=== PATIENT | female | born 1950 | race Caucasian/White ===

== ENCOUNTER 2017-02-16 12:49 | Observation (INO) | payer BC ==
[2017-02-16] MEDS ORDERED: HYDROmorphone 1 MG/ML 1 ML SYRINGE IVP STA ×2 (13:03→18:05)
--- NOTE | 2017-02-16 13:10 | ED ---
Fall HPI - General Chief Complaint: Fall Stated Complaint: Fall Time Seen by Provider: 02/16/17 12:56 Source: patient Mode of arrival: EMS - History of Present Illness Initial Comments: Patient is a 66-year-old female who presents to the ED via EMS for evaluation of left shoulder pain after a fall. Patient states that she was walking out of a grocery store pushing a cart, she states she believes that a case of pop fell out of the cart and caused her to trip, she states that she fell to the ground but did not let go of the cart with her left arm. She immediately felt significant pain in her left arm and was unable to move it. 911 was called. EMS found the patient standing ground with her left arm abducted and externally rotated. They placed her on a backboard for ease of transport and administered 50 of intranasal Brian 100 g of IV fentanyl in route to the hospital. Trent significant doses of narcotics the patient continues to complain of 10 out of 10 pain in her left shoulder. Patient denies any other injuries. - Related Data Home Medications Medication Instructions Recorded Confirmed Acetaminophen/Diphenhydramine 1 tab PO HS 08/07/14 02/16/17 [Tylenol PM 500-25mg] DULoxetine HCL 60 mg PO DAILY 08/07/14 02/16/17 Gabapentin [Neurontin] 300 mg PO HS 08/07/14 02/16/17 Acetaminophen Arthritis Strength 1,300 mg PO BID 01/15/15 02/16/17 Cholecalciferol [Vitamin D3] 1,000 unit PO DAILY 01/15/15 02/16/17 Omeprazole [PriLOSEC] 20 mg PO DAILY 02/16/17 02/16/17 Vitamin B Complex 1 cap PO DAILY 02/16/17 02/16/17 Allergies Allergy/AdvReac Type Severity Reaction Status Date / Time hydrocodone Allergy Itching Verified 02/16/17 13:56 Sulfa (Sulfonamide Allergy Anaphylaxis Verified 02/16/17 13:56 Antibiotics) Review of Systems ROS Statement: Those systems with pertinent positive or pertinent negative responses have been documented in the HPI. ROS Other: All systems not noted in ROS Statement are negative. Past Medical History Past Medical History: Diabetes Mellitus, Eye Disorder, Fibromyalgia, GERD/Reflux , GI Bleed, Pneumonia, Seizure Disorder Additional Past Medical History / Comment(s): BILAT CATARACTS,DIET CONTROLLED DIABETIC, BLEEDING ULCER AGE 24,LAST SEIZURE 1999,[id number], DIVERTICULTIS History of Any Multi-Drug Resistant Organisms: None Reported Past Surgical History: Appendectomy, Bladder Surgery, Section Additional Past Surgical History / Comment(s): bladder suspension, SUNNI FUNDLIPLOCATION, COLONOSCOPY- CYST REMOVED FROM LT CLAVICAL AND LT HAND, back surgery Past Anesthesia/Blood Transfusion Reactions: Motion Sickness Past Psychological History: No Psychological Hx Reported Smoking Status: Never smoker - Past Family History Father Family Medical History: Myocardial Infarction ([place]) Additional Family Medical History / Comment(s): MALARIA WHILE IN SERVICE, MASSIVE [place] AGE 57- Mother Additional Family Medical History / Comment(s): STROKE AGE 38 Sister(s) Family Medical History: Cancer General Exam Limitations: no limitations Course Vital Signs 02/16/17 02/16/17 02/16/17 12:53 14:22 15:06 Temperature 97.9 F Pulse Rate 102 H 84 99 Respiratory 24 20 18 Rate Blood Pressure 168/96 209/97 184/99 O2 Sat by Pulse 100 100 100 Oximetry 02/16/17 02/16/17 02/16/17 16:41 16:56 17:04 Temperature Pulse Rate 96 79 89 Respiratory 17 18 17 Rate Blood Pressure 175/89 151/95 156/84 O2 Sat by Pulse 100 100 100 Oximetry 02/16/17 02/16/17 02/16/17 17:08 17:13 17:20 Temperature Pulse Rate 102 H 110 H 95 Respiratory 17 16 18 Rate Blood Pressure 179/104 191/105 181/123 O2 Sat by Pulse 98 100 100 Oximetry 02/16/17 02/16/17 17:36 18:12 Temperature Pulse Rate 88 102 H Respiratory 18 20 Rate Blood Pressure 158/78 167/90 O2 Sat by Pulse 98 100 Oximetry Medical Decision Making - Medical Decision Making Patient was seen and evaluated, history was obtained from patient, and EMS Physical exam is concerning for significant pain in the left upper extremity, concern for dislocation versus fracture X-ray was ordered Dilaudid was ordered for analgesia Xray reveals fracture/dislocation Ortho was paged for recommendations She care was discussed with Cathie MORALES from the orthopedic team who will review the images with the attending physician and callback with recommendations She called back and recommended that we attempt reduction in the emergency department, I don't believe the patient will tolerate a weight reduction therefore we will plan for conscious sedation Propofol was ordered for conscious sedation, patient was placed on cardiac and respiratory monitors, respiratory therapy at bedside, suctioning and crash cart were available at bedside Patient was sedated with 200 g of propofol, adequate sedation was achieved Reduction was attempted via traction countertraction as well as a modified legg technique, there is significant movement of the bones palpated as well as crepitus Patient's arm was placed in a sling and a repeat x-ray was obtained Patient woke from sedation and quickly became alert and oriented back to her baseline mental status Repeat dose of Dilaudid was ordered Repeat X-ray reveals that the humerus was not successfully reduced, orthopedic surgery was again paged Orthopedic surgery callback, they will again reevaluate the images with the attending physician and make recommendations Orthopedic surgery callback, they've reviewed the repeat imaging and plan to take the patient to the operating room for general anesthetic and reduction Patient family were updated with plan they're agreeable to plan for OR for reduction of fracture dislocation - Lab Data Result diagrams: 02/16/17 14:30 02/16/17 14:30 Lab Results 02/16/17 02/16/17 02/16/17 Range/Units 14:30 14:30 14:30 WBC 10.6 (3.8-10.6) k/uL RBC 4.51 (3.80-5.40) m/uL Hgb 14.3 (11.4-16.0) gm/dL Hct 43.5 (34.0-46.0) % MCV 96.3 (80.0-100.0) fL MCH 31.6 (25.0-35.0) pg MCHC 32.8 (31.0-37.0) g/dL RDW 13.9 (11.5-15.5) % Plt Count 201 (150-450) k/uL Neutrophils % 76 % Lymphocytes % 16 % Monocytes % 6 % Eosinophils % 1 % Basophils % 0 % Neutrophils # 8.0 H (1.3-7.7) k/uL Lymphocytes # 1.7 (1.0-4.8) k/uL Monocytes # 0.6 (0-1.0) k/uL Eosinophils # 0.1 (0-0.7) k/uL Basophils # 0.0 (0-0.2) k/uL PT 10.8 (9.0-12.0) sec INR 1.1 (<1.2) APTT 24.6 (22.0-30.0) sec Sodium 140 (137-145) mmol/L Potassium 4.6 (3.5-5.1) mmol/L Chloride 107 (98-107) mmol/L Carbon Dioxide 24 (22-30) mmol/L Anion Gap 9 mmol/L BUN 13 (7-17) mg/dL Creatinine 0.59 (0.52-1.04) mg/dL Est GFR (MDRD) Af Amer >60 (>60 ml/min/1.73 sqM) Est GFR (MDRD) Non-Af >60 (>60 ml/min/1.73 sqM) Glucose 102 H (74-99) mg/dL Calcium 9.0 (8.4-10.2) mg/dL Disposition Clinical Impression: Left humeral fracture, Dislocation of left shoulder joint Disposition: ADMITTED IP TO THIS [facility] Condition: Good
--- NOTE | 2017-02-16 14:30 | XR ---
EXAMINATION TYPE: XR shoulder complete LT DATE OF EXAM: 02/16/2017 COMPARISON: NONE HISTORY: 56-year-old female pain, fall, evaluate for dislocation TECHNIQUE: 2 views FINDINGS: Mild degenerative change at the AC joint. There appears to be an anterior subcoracoid humeral joint d islocation with the displaced fracture of the greater tuberosity which is mildly comminuted. Largest fracture fragment measures 1.5 cm. IMPRESSION: Fracture dislocation of the left shoulder. There is subcoracoid glenohumeral joint dislocation with a displaced, mildly comminuted 1.5 cm greater tuberosity fracture fragment. Given the patient's arm po sition, this may represent an inferior dislocation (luxatio erecta).
[2017-02-16 14:42] LABS: Basophils % (A) 0 %; CH 31.9; CHCM 33.3; Eosinophils # (A) 0.1 k/uL (0-0.7); Eosinophils % (A) 1 %; HCT 43.5 % (34.0-46.0); HDW 2.15; HGB 14.3 gm/dL (11.4-16.0); Luc # (Auto) 0.17; Luc % (Auto) 2; Lymphocytes # (A) 1.7 k/uL (1.0-4.8); Lymphocytes % (A) 16 %; MCH 31.6 pg (25.0-35.0); MCHC 32.8 g/dL (31.0-37.0); MCV 96.3 fL (80.0-100.0); Mean Platelet Volume 7.3; Monocytes # (A) 0.6 k/uL (0-1.0); Monocytes % (A) 6 %; Neutrophils % (A) 76 %; RBC 4.51 m/uL (3.80-5.40); RDW 13.9 % (11.5-15.5); WBC 10.6 k/uL (3.8-10.6); WBC (Perox) 10.41
[2017-02-16 14:57] LABS: Anion Gap 9 mmol/L; Blood Urea Nitrogen 13 mg/dL (7-17); Carbon Dioxide 24 mmol/L (22-30); Chloride 107 mmol/L (98-107); Glucose 102 mg/dL (74-99); Non-African American GFR(MDRD) >60 (>60 ml/min/1.73 sqM); Potassium 4.6 mmol/L (3.5-5.1); Sodium 140 mmol/L (137-145)
[2017-02-16 15:22] LABS: INR 1.1 (<1.2); Partial Thromboplastin Time 24.6 sec (22.0-30.0); Prothrombin Time 10.8 sec (9.0-12.0)
[2017-02-16] MEDS: PROPOFOL 10 MG/ML 20 ML VIAL IV STA ×4 (16:55→17:14)
--- NOTE | 2017-02-16 17:47 | XR ---
EXAMINATION TYPE: XR shoulder limited LT DATE OF EXAM: 02/16/2017 COMPARISON: Today HISTORY: Post reduction TECHNIQUE: Single view FINDINGS: There is anterior fracture dislocation of the glenohumeral joint. There is a 2 cm large chi p fracture of the greater tuberosity. IMPRESSION: Anterior fracture dislocation of the shoulder joint without change in position compared t o earlier exam today.
[2017-02-16] MEDS ORDERED: NALOXONE 0.4 MG/ML 1 ML VIAL IV PRN (18:18)
[2017-02-16] MEDS ORDERED: IV FLUID CONTINUATION 700 ML IV ONE (19:23)
--- NOTE | 2017-02-16 19:37 | P.HPOR ---
History of Present Illness H&P Date: 02/16/17 This is a 66yo female who presented to the [facility] with left arm pain after a fall. Patient was brought in by EMS. Patient states she tripped over a box and fell with her arm still holding onto a shopping cart. This occurred around 11:45 am. Orthopedics is consulted for fracture dislocation of the left shoulder. Two attempts were made in the EC for shoulder reduction without success. Patient denies numbness, tingling or weakness. Patient states she last ate around 9 am this morning. Past Medical History Past Medical History: Diabetes Mellitus, Eye Disorder, Fibromyalgia, GERD/Reflux , GI Bleed, Pneumonia, Seizure Disorder Additional Past Medical History / Comment(s): BILAT CATARACTS,DIET CONTROLLED DIABETIC, BLEEDING ULCER AGE 24,LAST SEIZURE 1999,[id number], DIVERTICULTIS History of Any Multi-Drug Resistant Organisms: None Reported Past Surgical History: Appendectomy, Bladder Surgery, Section Additional Past Surgical History / Comment(s): bladder suspension, SUNNI FUNDLIPLOCATION, COLONOSCOPY- CYST REMOVED FROM LT CLAVICAL AND LT HAND, back surgery Past Anesthesia/Blood Transfusion Reactions: Motion Sickness Past Psychological History: No Psychological Hx Reported Smoking Status: Never smoker - Past Family History Father Family Medical History: Myocardial Infarction ([place]) Additional Family Medical History / Comment(s): MALARIA WHILE IN SERVICE, MASSIVE [place] AGE 57- Mother Additional Family Medical History / Comment(s): STROKE AGE 38 Sister(s) Family Medical History: Cancer Medications and Allergies Home Medications Medication Instructions Recorded Confirmed Type Acetaminophen/Diphenhydramine 1 tab PO HS 08/07/14 02/16/17 History [Tylenol PM 500-25mg] DULoxetine HCL 60 mg PO DAILY 08/07/14 02/16/17 History Gabapentin [Neurontin] 300 mg PO HS 08/07/14 02/16/17 History Acetaminophen Arthritis Strength 1,300 mg PO BID 01/15/15 02/16/17 History Cholecalciferol [Vitamin D3] 1,000 unit PO DAILY 01/15/15 02/16/17 History Omeprazole [PriLOSEC] 20 mg PO DAILY 02/16/17 02/16/17 History Vitamin B Complex 1 cap PO DAILY 02/16/17 02/16/17 History Allergies Allergy/AdvReac Type Severity Reaction Status Date / Time hydrocodone Allergy Itching Verified 02/16/17 13:56 Sulfa (Sulfonamide Allergy Anaphylaxis Verified 02/16/17 13:56 Antibiotics) Physical Examination Patient is alert and oriented x3. Patient is lying flat with left upper extremity lying on the bed externally rotated and flexed at the elbow above her head. Patient has severe tenderness over the left shoulder. Patient has full sensation of the left upper extremity. Full range of motion of the hand. Radial pulse 2+. Neurovascular status intact. Results X-rays of the left shoulder show inferior shoulder dislocation and fracture of the greater tuberosity. - Labs Labs: Abnormal Lab Results - Last 24 Hours (Table) 02/16/17 02/16/17 Range/Units 14:30 14:30 Neutrophils # 8.0 H (1.3-7.7) k/uL Glucose 102 H (74-99) mg/dL H & H 02/16/17 Range/Units 14:30 Hgb 14.3 (11.4-16.0) gm/dL Hct 43.5 (34.0-46.0) % Coagulation 02/16/17 Range/Units 14:30 INR 1.1 (<1.2) Result Diagrams: 02/16/17 14:30 02/16/17 14:30 Assessment and Plan (1) Fracture dislocation of shoulder joint Status: Acute Plan: #1. Closed reduction left shoulder in the OR is planned. Consent obtained. #2. Patient will be admitted overnight. #3. Post-reduction CT scan to be performed to further assess fracture.
[2017-02-16] MEDS ORDERED: hydrOXYzine PAMOATE 25 MG CAP PO PRN (19:41)
[2017-02-16] MEDS ORDERED: SUCCINYLCHOLINE CHLORIDE 100 MG/5 ML SYR IV ONE (19:44)
[2017-02-16] MEDS ORDERED: MIDAZOLAM 2 MG/2 ML VIAL ONE (19:44)
[2017-02-16] MEDS ORDERED: HYDROmorphone (PF) 1 MG/ML ONE (19:44)
[2017-02-16] MEDS ORDERED: PROPOFOL 10 MG/ML 20 ML VIAL IV ONE (19:44)
[2017-02-16] MEDS ORDERED: SODIUM CHLORIDE 0.9% 1,000 ML IV SCH (19:45)
[2017-02-16] MEDS ORDERED: traMADol 50 MG TAB PO PRN (19:45)
--- NOTE | 2017-02-16 20:09 | P.OP ---
Date of Procedure: 02/16/17 Preoperative Diagnosis: Inferior fracture dislocation left shoulder Postoperative Diagnosis: Inferior fracture dislocation left shoulder Procedure(s) Performed: Closed reduction left shoulder fracture/dislocation Implants: Anesthesia: MOO Surgeon: Yuan Barnett Vocational Rehabilitation Technician #1: Cathie Sutherland Pathology: none sent Condition: stable Disposition: PACU Indications for Procedure: This is a 66-year-old female stained a fracture dislocation of her left shoulder earlier today. There were multiple attempts at reduction in the emergency room which were unsuccessful. Her discussing the surgical and nonsurgical treatment options with her and her family at length, I have recommended a close reduction in the operating room with general anesthetic. Consent was obtained. Operative Findings: The operative findings are consistent with an inferior fracture dislocation of the left shoulder Description of Procedure: The patient was seen in the preoperative area, consent was reviewed and the surgical site was marked with a skin marker. She was then brought to the operating room and given a general anesthetic by the anesthesia department. Reversal timeout was then performed which confirmed the patient's name, surgical site, ALLERGIES, and consent After the patient was under general anesthetic, a reduction maneuver was performed. Flouroscopic x-rays confirmed reduction of the fracture dislocation. The patient was then placed in an arm sling, and transferred to the recovery room in stable condition. The assistant merchandise manager ANDREW Ann was required due the complexity of the procedure and the need for a skilled diploma dental assistant.
[2017-02-16] MEDS ORDERED: SODIUM CHLORIDE 0.9% 1,000 ML IV ONE (20:48)
[2017-02-16] MEDS: traMADol 50 MG TAB PO PRN (21:08)
[2017-02-16 22:24] LABS: Appearance,Urine Clear (Clear); Bilirubin,Urine Negative (Negative); Glucose,Urine (UA) Negative (Negative); Ketones,Urine 1+ (Negative); Leukocyte Esterase,Urine Negative (Negative); Nitrite,Urine Negative (Negative); Protein,Urine Negative (Negative); Specific Gravity,Urine 1.014 (1.001-1.035); UA Billing (MACRO vs. MICRO) CHEM; Urobilinogen,Urine <2.0 mg/dL (<2.0)
[2017-02-16] MEDS: hydrOXYzine PAMOATE 25 MG CAP PO PRN (22:29)
--- NOTE | 2017-02-16 23:07 | CT ---
EXAM: CT Left Upper Extremity Without Intravenous Contrast, Shoulder CLINICAL HISTORY: Reason: post-reduction, fracture dislocation left shoulder TECHNIQUE: Axial computed tomography images of the left shoulder without intravenous contrast. CTDI is 19.15 mGy and DLP is 367.68 mGy-cm. This CT exam was performed using one or more of the following dose reduction techniques: automated exposure control, adjustment of the mA and/or kV according to patient size, and/or use of iterative reconstruction technique. COMPARISON: Left shoulder radiographs dated February 16, 2017. FINDINGS: Bones/joints: There has been interval reduction of left glenohumeral joint dislocation. Again demonstrated is a comminuted fracture of the left humeral head. There is no Bankart lesion. Soft tissues: There is soft tissue swelling about the left shoulder. IMPRESSION: Interval reduction of left anterior shoulder dislocation with comminuted fracture of the humeral head. No osseous Bankart lesion identified.
[2017-02-17] MEDS: traMADol 50 MG TAB PO PRN ×3 (02:36→15:47)
--- NOTE | 2017-02-17 07:57 | XR ---
EXAMINATION TYPE: XR shoulder AP limited LT, FL guidance operating room DATE OF EXAM: 02/16/2017 COMPARISON: Earlier in the day HISTORY: 66-year-old female with left shoulder dislocation, postreduction TECHNIQUE: Intraoperative closed reduction fluoroscopy FINDINGS: 2 AP images show satisfactory reduction of the glenoid humeral joint. The displaced greater tuberosit y fracture fragment has been brought into close satisfactory apposition. FLUOROSCOPY Fluoroscopy time of 18 seconds was used during left shoulder reduction. 2 image/s document/s the pro cedure. IMPRESSION: Fluoroscopy during closed reduction.
[2017-02-17] MEDS: hydrOXYzine PAMOATE 25 MG CAP PO PRN (08:27)
[2017-02-17] MEDS ORDERED: DIAZEPAM 5 MG/ML 2 ML SYRINGE IVP PRN (09:12)
[2017-02-17] MEDS: CHOLECALCIFEROL 1,000 UNIT TAB PO SCH (10:08)
[2017-02-17] MEDS: DULoxetine HCL 60 MG CAPSULE.DR PO SCH (10:08)
[2017-02-17] MEDS: PANTOPRAZOLE 40 MG TABLET PO SCH (10:08)
[2017-02-17] MEDS: B COMPLEX-VIT C-VIT E-ZINC 1 EACH TAB PO SCH (10:08)
--- NOTE | 2017-02-17 10:43 | XR ---
EXAMINATION TYPE: XR elbow complete LT DATE OF EXAM: 02/17/2017 COMPARISON: NONE HISTORY: 66-year-old female with pain TECHNIQUE: 3 views FINDINGS: There is elevation of the anterior fat pad of the elbow. No acute fracture, subluxation, or dislocati on is seen. IMPRESSION: No acute osseous abnormality seen. However, given the anterior elbow joint effusion, if there is a hi story of injury and concern for occult internal derangement, a follow-up in 10-14 days can be perform ed.
--- NOTE | 2017-02-17 11:25 | P.DS ---
Providers Date of admission: 02/16/17 18:18 Expected date of discharge: 02/17/17 Attending physician: Yuan Barnett Primary care physician: Elmira Green - Discharge Diagnosis(es) (1) Fracture dislocation of shoulder joint Current Visit: Yes Status: Acute (2) Left elbow pain Current Visit: Yes Status: Acute (3) Occult fracture of left elbow Current Visit: Yes Status: Acute Hospital Course: This is a 66-year-old female who sustained an injury to the left upper extremity after a fall on 02/16/2017. Patient presented to the emergency room for evaluation and through x-ray was found to have a fracture dislocation of the left shoulder. Two attempts were made at reducing the shoulder in the emergency room but this was unsuccessful. Orthopedics was consulted and the patient was taken to the OR for closed reduction after consent was obtained. The patient is seen and evaluated by Dr. Yuan Barnett before being taken to the OR and cleared for closed reduction. Patient is admitted to [facility] on 02/16/2017 for observation and pain control. The procedure was performed without complication or sequelae. The patient is doing well postoperatively. Labs and vital signs are stable on day of discharge. On day of discharge patient was found to have tenderness over the left elbow and was complaining of nerve pain to the 4th and 5th digits of the left hand. An x-ray of the left elbow was done and reviewed showing evidence for possible occult fracture of the left elbow. Results were discussed with the patient and patient will be treated for fracture of shoulder and possible fracture of elbow with a sling. On exam of left shoulder there is tenderness over the left shoulder with mild swelling. No erythema or ecchymosis. Patient's left upper extremity is maintained in a sling. Patient has full left hand and wrist motion. Neurovascular status to the left upper extremity is intact. Patient is discharged home in good condition. Please see med rec for accurate list of home medications. Patient Condition at Discharge: Good Plan - Discharge Summary New Discharge Prescriptions: New Diazepam [Valium] 1 - 2 tab PO TID #20 tab Ketorolac [Toradol] 10 mg PO Q6HR #20 tab traMADol HCl [Ultram] 1 - 2 tab PO Q6H PRN #45 tab PRN Reason: Pain No Action Gabapentin [Neurontin] 300 mg PO HS DULoxetine HCL 60 mg PO DAILY Acetaminophen/Diphenhydramine [Tylenol PM 500-25mg] 1 tab PO HS Cholecalciferol [Vitamin D3] 1,000 unit PO DAILY Acetaminophen Arthritis Strength 1,300 mg PO BID Vitamin B Complex 1 cap PO DAILY Omeprazole [PriLOSEC] 20 mg PO DAILY Discharge Medication List Acetaminophen/Diphenhydramine [Tylenol PM 500-25mg] 1 tab PO HS 08/07/14 [ History] DULoxetine HCL 60 mg PO DAILY 08/07/14 [History] Gabapentin [Neurontin] 300 mg PO HS 08/07/14 [History] Acetaminophen Arthritis Strength 1,300 mg PO BID 01/15/15 [History] Cholecalciferol [Vitamin D3] 1,000 unit PO DAILY 01/15/15 [History] Omeprazole [PriLOSEC] 20 mg PO DAILY 02/16/17 [History] Vitamin B Complex 1 cap PO DAILY 02/16/17 [History] Diazepam [Valium] 1 - 2 tab PO TID #20 tab 02/17/17 [Rx] Ketorolac [Toradol] 10 mg PO Q6HR #20 tab 02/17/17 [Rx] traMADol HCl [Ultram] 1 - 2 tab PO Q6H PRN #45 tab 02/17/17 [Rx] Follow up Appointment(s)/Referral(s): Elmira Green MD [Primary Care Provider] - 1-2 days Yuan Barnett DO [Doctor of Osteopathic Medicine] - 02/19/17 Activity/Diet/Wound Care/Special Instructions: Maintain sling to left upper extremity Continue ice to left upper extremity Please take medications as prescribed Follow up with Dr. Yuan Barnett on Sunday02/19/2017. Anticipate repeat x-rays of the left elbow in 7-10 days. Discharge Disposition: HOME SELF-CARE
[2017-02-17] MEDS: DIAZEPAM 5 MG/ML 2 ML SYRINGE IVP PRN ×2 (12:05→18:42)
[2017-02-17] MEDS: KETOROLAC 30 MG/ML 1 ML VIAL IVP SCH ×2 (12:23→18:14)
[2017-02-17] MEDS ORDERED: GABAPENTIN 300 MG CAP PO SCH (21:00)
[2017-02-18] MEDS: KETOROLAC 30 MG/ML 1 ML VIAL IVP SCH ×2 (01:43→06:30)
[2017-02-18 07:13] VITALS: BP 148/79; PULSE 82; RESP 16; TEMP 98.2
[2017-02-18] MEDS: traMADol 50 MG TAB PO PRN (07:27)
[2017-02-18] MEDS: DIAZEPAM 5 MG/ML 2 ML SYRINGE IVP PRN (08:19)
[2017-02-18] MEDS: CHOLECALCIFEROL 1,000 UNIT TAB PO SCH (08:22)
[2017-02-18] MEDS: B COMPLEX-VIT C-VIT E-ZINC 1 EACH TAB PO SCH (08:22)
[2017-02-18] MEDS: DULoxetine HCL 60 MG CAPSULE.DR PO SCH (08:23)
[2017-02-18] MEDS: PANTOPRAZOLE 40 MG TABLET PO SCH (08:25)
== END 2017-02-18 08:51 | disposition home or self-care (01) ==
LOC: EC 12:49 → 3SUR 18:18 → 3OBS 19:12
PROVIDERS: ADMIT Orthopaedic Surgery; ATTEND Orthopaedic Surgery
DX: S42.252A Displaced fracture of greater tuberosity of left humerus, initial encounter for closed fracture (principal); S43.005A Unspecified dislocation of left shoulder joint, initial encounter; M25.522 Pain in left elbow; E11.9 Type 2 diabetes mellitus without complications; M79.7 Fibromyalgia; K21.9 Gastro-esophageal reflux disease without esophagitis; W01.0XXA Fall on same level from slipping, tripping and stumbling without subsequent striking against object, initial encounter; Z79.899 Other long term (current) drug therapy; Z88.5 Allergy status to narcotic agent; Z88.2 Allergy status to sulfonamides
CPT/HCPCS: 23665; 99152 ×2; 23650; 96376; 96374; 99285; 36415; 80048; 85025; 85610; 85730; 81003; 73030; 73020; 73080; 73200; G0378 ×3; J2250; J3360 ×2; J1885 ×2; J1170; J0330; J2704

== ENCOUNTER → 2019-02-14 | Outpatient (CLI) | payer MEDICARE | END | disposition home or self-care (01) | LOC: LABWHC1 12:32 | PROVIDERS: ATTEND Orthopaedic Surgery | DX: S62.627A Displaced fracture of middle phalanx of left little finger, initial encounter for closed fracture (principal) | CPT/HCPCS: 36415; 82306 ==